=== PATIENT | female | born 1985 | race Caucasian/White ===

== ENCOUNTER → 2020-11-22 | Emergency (ER) | payer SELFPAY ==
[~2020-11-22] VITALS: Ht 165.1 cm; Wt 81.6 kg
== END ==
LOC: ER 16:18
DX: K04.7 Periapical abscess without sinus (principal)
CPT/HCPCS: 99282

== ENCOUNTER 2021-03-02 14:25 | Emergency (ER) | payer OTHER ==
[~2021-03-02] VITALS: Ht 165.1 cm; Wt 81.6 kg
[2021-03-02] MEDS ORDERED: KETOROLAC TROMETHAMINE 30 MG/ML VIAL IV STA (14:32)
[2021-03-02] MEDS ORDERED: AUGMENTIN 875-1 EACH PO (14:41)
[2021-03-02] MEDS ORDERED: NAPROXEN250 MG PO (14:41)
[2021-03-02 14:48] LABS: BASOPHILS % 0.2 % (0.0-1.0); EOSINOPHILS # (AUTO) 0.1 (0.0-0.4); EOSINOPHILS % 2.5 % (0.0-6.0); HEMATOCRIT 39.9 % (34.2-44.1); HEMOGLOBIN 12.9 g/dL (12.0-16.0); LYMPHOCYTES # (AUTO) 2.1 (1.0-3.2); LYMPHOCYTES % 36.4 % (18.0-39.1); MEAN CORPUSCULAR HEMOGLOBIN 31.2 pg (28-32); MEAN CORPUSCULAR HGB CONC 32.3 g/dL (31-35); MEAN CORPUSCULAR VOLUME 96.6 fL (81-99); MONOCYTES # (AUTO) 0.4 (0.2-0.8); MONOCYTES % 7.5 % (4.4-11.3); NEUTROPHILS % 53.2 % (38.7-80.0); PLATELET COUNT 326 x10e3/uL (140-360); RED BLOOD COUNT 4.13 x10e6/uL (3.6-5.1); RED CELL DISTRIBUTION WIDTH 14.7 % (11.7-14.4)
[2021-03-02 14:53] LABS: CLARITY,URINE SL CLOUDY (CLEAR); COLOR,URINE YELLOW (YELLOW); KETONES,URINE NEGATIVE (NEGATIVE); LEUKOCYTE ESTERASE ,URINE NEGATIVE (NEGATIVE); NITRITE,URINE NEGATIVE (NEGATIVE); PROTEIN,URINE DIPSTICK NEGATIVE (NEGATIVE); URINE UROBILINOGEN 0.2 mg/dL (0.2 - 1)
[2021-03-02 15:08] LABS: ALBUMIN 3.9 g/dL (3.5-5.0); ALBUMIN/GLOBULIN RATIO 1.1 (0.8-2.0); ANION GAP 11.8 mmol/L (8-16); BACTERIA,URINE FEW /HPF; CALCIUM 8.9 mg/dL (8.4-10.2); CREATININE, SERUM 0.66 mg/dL (0.57-1.11); EPITHELIAL CELLS,URINE MODERATE /LPF; POTASSIUM 3.8 mmol/L (3.5-5.1); RBC,URINE 0-5 /HPF (0-5)
[2021-03-02] MEDS ORDERED: ACETAMINOPHEN/CODEINE 300MG - 30MG TAB PO ONE (17:00)
[2021-03-02 17:13] VITALS: BP 136/63
== END 2021-03-02 17:15 | disposition home or self-care (01) ==
LOC: ER 14:32
DX: K04.7 Periapical abscess without sinus (principal); K02.9 Dental caries, unspecified; R10.11 Right upper quadrant pain; F17.210 Nicotine dependence, cigarettes, uncomplicated
CPT/HCPCS: 36415; 76705; 80053; 81001; 81025; 83690; 85025; 99284; J1885

== ENCOUNTER 2021-03-16 10:47 | Emergency (ER) | payer OTHER ==
[~2021-03-16] VITALS: Ht 165.1 cm; Wt 81.6 kg
[~2021-03-16 10:47] MED LIST: AUGMENTIN 875-1 EACH PO; NAPROXEN250 MG PO
[2021-03-16] MEDS ORDERED: DICYCLOMINE HCL 20 MG/2 ML VIAL IM ONE (11:30)
[2021-03-16] MEDS ORDERED: SODIUM CHLORIDE 0.9% 1000ML 1,000 ML IV SCH (11:30)
[2021-03-16 11:33] LABS: EOSINOPHILS # (AUTO) 0.1 (0.0-0.4); EOSINOPHILS % 2.2 % (0.0-6.0); HEMATOCRIT 35.4 % (34.2-44.1); HEMOGLOBIN 11.5 g/dL (12.0-16.0); LYMPHOCYTES # (AUTO) 1.8 (1.0-3.2); LYMPHOCYTES % 35.8 % (18.0-39.1); MEAN CORPUSCULAR HEMOGLOBIN 31.3 pg (28-32); MEAN CORPUSCULAR HGB CONC 32.5 g/dL (31-35); MEAN CORPUSCULAR VOLUME 96.2 fL (81-99); MONOCYTES # (AUTO) 0.5 (0.2-0.8); MONOCYTES % 10.2 % (4.4-11.3); NEUTROPHILS # (AUTO) 2.5 (2.1-6.9); NEUTROPHILS % 51.4 % (38.7-80.0); PLATELET COUNT 299 x10e3/uL (140-360); RED BLOOD COUNT 3.68 x10e6/uL (3.6-5.1); RED CELL DISTRIBUTION WIDTH 14.2 % (11.7-14.4)
[2021-03-16 11:55] LABS: ALBUMIN 3.7 g/dL (3.5-5.0); ALBUMIN/GLOBULIN RATIO 1.2 (0.8-2.0); ANION GAP 10.5 mmol/L (8-16); CALCIUM 8.9 mg/dL (8.4-10.2); CREATININE, SERUM 0.66 mg/dL (0.57-1.11); POTASSIUM 3.5 mmol/L (3.5-5.1)
[2021-03-16 12:03] LABS: CREATINE KINASE MB 1.1 ng/mL (0-5.0)
[2021-03-16] MEDS ORDERED: SODIUM CHLORIDE 0.9% 50ML 50 ML ONE (12:13)
[2021-03-16] MEDS ORDERED: IOPAMIDOL 370 MG/ML 200 ML INFUS..BTL INJ ONE (12:13)
[2021-03-16 12:15] LABS: COLOR,URINE YELLOW (YELLOW)
[2021-03-16 12:16] LABS: CLARITY,URINE SL CLOUDY (CLEAR); KETONES,URINE NEGATIVE (NEGATIVE); LEUKOCYTE ESTERASE ,URINE NEGATIVE (NEGATIVE); NITRITE,URINE NEGATIVE (NEGATIVE); PROTEIN,URINE DIPSTICK NEGATIVE (NEGATIVE)
[2021-03-16 12:22] LABS: LIPASE 14 U/L (8-78)
[2021-03-16 12:33] LABS: BACTERIA,URINE FEW /HPF; EPITHELIAL CELLS,URINE MODERATE /LPF; RBC,URINE 0-5 /HPF (0-5)
[2021-03-16 15:04] VITALS: BP 128/76
== END 2021-03-16 15:06 | disposition home or self-care (01) ==
LOC: ER 11:00
DX: R10.11 Right upper quadrant pain (principal); R16.0 Hepatomegaly, not elsewhere classified; F17.210 Nicotine dependence, cigarettes, uncomplicated
CPT/HCPCS: 36415; 74177; 80053; 81001; 82550; 82553; 83690; 84484; 84702; 85025; 99284; C9113; J0500; J7030; Q9967

== ENCOUNTER 2021-07-14 13:22 | Emergency (ER) | payer OTHER ==
[~2021-07-14] VITALS: Ht 165.1 cm; Wt 81.6 kg
[2021-07-14] MEDS ORDERED: DIFLUNISAL500 MG PO (14:10)
[2021-07-14] MEDS ORDERED: CLEOCIN HCL300 MG PO (14:10)
== END 2021-07-14 14:36 | disposition home or self-care (01) ==
LOC: ER 13:26
DX: K04.7 Periapical abscess without sinus (principal); K02.9 Dental caries, unspecified
CPT/HCPCS: 99282

== ENCOUNTER 2021-08-28 12:14 | Emergency (ER) | payer OTHER ==
[~2021-08-28] VITALS: Ht 165.1 cm; Wt 81.6 kg
[~2021-08-28 12:14] MED LIST changes: +CLEOCIN HCL300 MG PO; +DIFLUNISAL500 MG PO
[2021-08-28] MEDS ORDERED: KETOROLAC TROMETHAMINE 60 MG/2 ML VIAL IM ONE (12:30)
[2021-08-28] MEDS ORDERED: ULTRAM 50MG50 MG PO (22:28)
[2021-08-28] MEDS ORDERED: AUGMENTIN 500-1 EACH PO (22:28)
== END 2021-08-28 12:35 | disposition home or self-care (01) ==
LOC: ER 12:35
DX: K02.9 Dental caries, unspecified (principal)
CPT/HCPCS: 99283

== ENCOUNTER 2021-08-28 20:32 | Emergency (ER) | payer OTHER ==
[~2021-08-28] VITALS: Ht 165.1 cm; Wt 81.6 kg
[2021-08-28] MEDS ORDERED: BUPIVACAINE HCL 0.25% 10ML MPF VIAL INJ ONE (21:15)
[2021-08-28 21:36] LABS: BASOPHILS % 0.3 % (0.0-1.0); EOSINOPHILS # (AUTO) 0.1 (0.0-0.4); HEMATOCRIT 38.6 % (34.2-44.1); HEMOGLOBIN 12.7 g/dL (12.0-16.0); LYMPHOCYTES # (AUTO) 2.2 (1.0-3.2); LYMPHOCYTES % 21.2 % (18.0-39.1); MEAN CORPUSCULAR HEMOGLOBIN 32.7 pg (28-32); MEAN CORPUSCULAR HGB CONC 32.9 g/dL (31-35); MEAN CORPUSCULAR VOLUME 99.5 fL (81-99); MONOCYTES # (AUTO) 0.9 (0.2-0.8); NEUTROPHILS # (AUTO) 7.1 (2.1-6.9); NEUTROPHILS % 68.3 % (38.7-80.0); PLATELET COUNT 295 x10e3/uL (140-360); RED BLOOD COUNT 3.88 x10e6/uL (3.6-5.1); RED CELL DISTRIBUTION WIDTH 13.2 % (11.7-14.4)
[2021-08-28 21:56] LABS: ALBUMIN 3.8 g/dL (3.5-5.0); ANION GAP 11.7 mmol/L (8-16); CALCIUM 9.1 mg/dL (8.4-10.2); CREATININE, SERUM 0.75 mg/dL (0.57-1.11); POTASSIUM 3.7 mmol/L (3.5-5.1)
[2021-08-28] MEDS ORDERED: AUGMENTIN 500-1 EACH PO (22:28)
[2021-08-28] MEDS ORDERED: ULTRAM 50MG50 MG PO (22:28)
[2021-08-28 23:10] VITALS: BP 127/89
== END 2021-08-28 23:12 | disposition home or self-care (01) ==
LOC: ER 20:36
DX: K04.7 Periapical abscess without sinus (principal); F17.210 Nicotine dependence, cigarettes, uncomplicated
CPT/HCPCS: 36415; 80053; 85025; 99283